=== PATIENT | female | born 1945 | race Caucasian/White ===

== ENCOUNTER → 2016-06-29 | Outpatient (CLI) | payer MEDICARE ==
--- NOTE | 2016-06-29 16:23 | MR ---
EXAMINATION TYPE: MR lumbar spine wo con DATE OF EXAM: 06/29/2016 4:04 PM COMPARISON: NONE HISTORY: LBP x 6 months, no trauma TECHNIQUE: T1 and T2 axial and sagittal images of the lumbar spine are submitted. FINDINGS: There is no abnormal signal seen within the visualized spinal cord or paraspinal soft tissu es. There is a septated partially visualized left renal lesion likely related to a Bosniak classifica tion 2 cyst measuring at least 4 cm. Additional exophytic 1 cm simple cysts noted. Both involve the l eft kidney. At T12-L1 there is no disc herniation or canal stenosis. No foraminal encroachment. At L1-2 there is no disc herniation or canal stenosis. No foraminal encroachment. At L2-3 there is hypertrophic change and ligamentum flavum and facets. No disc herniation or canal st enosis. Neural foramina patent. Vertebral body hemangioma of L3 noted. At L3-4 there is moderate hypertrophic change of the facets and ligamentum flavum. Neural foramina ar e patent. No canal stenosis or disc herniation At L4-5 there is moderate to severe ligamentum flavum and facet arthropathy. There is mild disc bulgi ng greater laterally to the right with mild right-sided foraminal encroachment with no definite nerve root contact. At L5-S1 there is severe facet arthropathy. Neural foramina remain patent. No disc herniation or cornelia l stenosis. 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 There is multilevel mild degenerative disc disease. IMPRESSION: 1. Multilevel mild degenerative disc disease with more moderate to severe multilevel facet arthropath y. No discrete herniation or canal stenosis at any of the visualized levels. Mild right foraminal enc roachment L4-L5 secondary to lateral disc bulging but no evidence of nerve root contact. 2. Complicated left renal cyst left kidney only partially included on exam with internal septation li edson the basis of Bosniak classification 2 cyst. The spleen also appears prominent in size correlate clinically. 3. There is an aortic aneurysm which originates below the level of the renal arteries appears focal m easuring at least 3.5 cm and only partially included on exam. Could be correlated with CT of the abdo men for further evaluation. No relevant additional imaging at this institution.
== END | disposition home or self-care (01) ==
LOC: RADMRIMAIN 14:40
PROVIDERS: ATTEND Psychiatry & Neurology Neurology
DX: M51.16 Intervertebral disc disorders with radiculopathy, lumbar region (principal); M46.96 Unspecified inflammatory spondylopathy, lumbar region
CPT/HCPCS: 72148